=== PATIENT | male | born 1950 | race Caucasian/White ===

== ENCOUNTER 2017-03-24 09:36 | Day surgery (SDC) | payer BC, MEDICARE ==
[~2017-03-24 09:36] MED LIST: ACETAMINOPHEN 1000MG/100 ML PREMIX IV ONE; FAMOTIDINE 20MG TABLET PO ONE; MECLIZINE 25 MG TABLET PO ONE; METOCLOPRAMIDE 10 MG TABLET PO ONE
[2017-03-24] MEDS ORDERED: SUCCINYLCHOLINE 20 MG/ML 10ML IVP ONE (14:00)
[2017-03-24] MEDS ORDERED: GLYCOPYRROLATE 0.2 MG/ML ML IV ONE (14:00)
[2017-03-24] MEDS ORDERED: ROCURONIUM BROMIDE 50MG/5ML VIAL IV ONE (14:00)
[2017-03-24] MEDS ORDERED: SEVOFLURANE 250 ML INH ONE (14:00)
[2017-03-24] MEDS ORDERED: PROPOFOL 10 MG/ML VIAL IV ONE (14:00)
[2017-03-24] MEDS ORDERED: LIDOCAINE 2% MDV (20MG/ML) 20ML VIAL IV ONE (14:00)
[2017-03-24] MEDS ORDERED: NEOSTIGMINE 1 MG/1 ML,10ML VIAL IV ONE (14:00)
[2017-03-24] MEDS ORDERED: HYDROCODONE/APAP 5/325MG TABLET PO ONE (15:33)
[2017-03-24] MEDS ORDERED: BUPIVACAINE 0.25% W/EPI MPF 30ML VIAL IVP ONE (15:33)
--- NOTE | 2017-03-26 11:51 | Operative Note ---
DATE OF SURGERY: 03/24/2017 REFERRING: Denise Luna M.D. PREOPERATIVE DIAGNOSIS: Symptomatic biliary dyskinesia. POSTOPERATIVE DIAGNOSIS: Symptomatic biliary dyskinesia. OPERATION: Laparoscopic cholecystectomy. Surgeon: Zhen Molina D.O. Material Mover: Dr. Sarah Scott, Resident. Indication: The patient is a 58-year-old male who has had ongoing right subcostal postprandial pain. Multiple imaging studies including CT scan and ultrasound were normal. HIDA scan showed an impaired ejection fraction at 13% which reproduced pain. The patient was seen in the office and a long discussion was done. I let him know that some of his symptoms may be biliary in nature however I could not guarantee resolution of his discomfort if cholecystectomy was pursued. He understood this and desired surgical intervention. We also discussed ongoing medical management which he declined. Risks include but not limited to bleeding, infection, ductal injury, possible conversion to open, postoperative bile leak, injury to underlying visceral structures. He understood this fully. The patient was morbidly obese and had a very large abdomen therefore we did elect to go in the supraumbilical region. He also had had a prior open umbilical hernia repair and again discussed avoiding this area. PROCEDURE: After consent was signed and questions answered, he was taken to the Operating Room and placed in the supine position. General anesthesia was administered per Department of Anesthesia. The patient's abdomen was shaved of hair and prepped and draped in the usual sterile fashion. Adequate timeout was performed. He did receive preoperative Ofirmev. At this time the supraumbilical region was anesthetized with a total of 5 mL of 0.25% Sensorcaine with epinephrine. A 2 cm incision was made. This was carried down to the anterior rectus fascia. This was incised. Frankie clamps placed on the fascial edges and brought up into the wound. Stay sutures of 0 Vicryl were placed. The posterior rectus sheath was identified and incised. The peritoneal cavity was entered digitally. A finger sweep was used. There were no adhesions noted. A 10 mm blunt Minerva port was then placed. A 10 mm, 0 degree lens was placed. There were omental adhesions in the midline which we did have to go around these with the camera. The patient was then rotated into reversed Trendelenburg, rotation to the left. Additional 5 mm epigastric and two 5 mm right subcostal ports were placed. The liver was noted to be very thick consistent with fatty infiltration. Omentum was covering the top of the gallbladder and this was taken down with the Wilver Harmonic. The top of the gallbladder was identified. This was lifted in a cephalad direction. The rest of the omentum was swept inferiorly. Our visualization was excellent. Further cephalad and lateral traction was applied to the gallbladder. The distal half of the gallbladder was released from the cystic plate enlarging our retrocystic area. The cystic duct and cystic artery clearly identified. There was no aberrant anatomy. No posterior ductal structures. Each one was circumferentially dissected out in a 360 degree fashion. We had excellent visualization and there were only 2 structures noted. Each one was doubly clipped and cut in a standard fashion. The gallbladder then was taken off the liver bed with the Wilver Harmonic. Part of this essentially peeled off. We placed an EndoCatch bag and this out infraumbilically after the 5 mm lens was placed to the right subcostal port. Right upper quadrant was rechecked and noted to be hemostatic. No bleeding, no bile leak and no bowel injury noted. I did inspect the 10 mm port site around the navel due to the adhesions which we saw and this was free of any injury as well. The patient was leveled out. Pneumoperitoneum was released. All ports removed. The fascia was closed with 0 Vicryl [id number] fashion. Skin in all 4 ports closed with 4-0 Vicryl. He was taken to recovery room in satisfactory condition. FINDINGS AT TIME OF SURGERY: Chronic cholecystitis. CC: DENISE LUNA MD, FACP MTDD
== END 2017-03-24 15:00 | disposition home or self-care (01) ==
LOC: SUR 09:36
PROVIDERS: ATTEND Surgery
DX: K82.8 Other specified diseases of gallbladder (principal); E78.00 Pure hypercholesterolemia, unspecified; I10 Essential (primary) hypertension; E11.9 Type 2 diabetes mellitus without complications; Z79.84 Long term (current) use of oral hypoglycemic drugs
CPT/HCPCS: J0330; J2710

== ENCOUNTER 2017-12-23 12:32 | Day surgery (SDC) | payer BC, MEDICARE ==
[~2017-12-23 12:32] MED LIST changes: -ACETAMINOPHEN 1000MG/100 ML PREMIX IV ONE; +CEFAZOLIN 2 Gram 2 GM/50 ML BAG IVPB ONE; -FAMOTIDINE 20MG TABLET PO ONE; -MECLIZINE 25 MG TABLET PO ONE; -METOCLOPRAMIDE 10 MG TABLET PO ONE
[2017-12-23] MEDS ORDERED: PROPOFOL 10 MG/ML VIAL IV ONE (12:33)
[2017-12-23] MEDS ORDERED: FENTANYL PF 100MCG/2ML VIAL IV ONE (12:33)
[2017-12-23] MEDS ORDERED: MIDAZOLAM HCL 2MG/2ML VIAL IV ONE (12:33)
[2017-12-23] MEDS ORDERED: LIDOCAINE 2% MDV (20MG/ML) 20ML VIAL IV ONE (12:33)
--- NOTE | 2017-12-24 12:31 | Operative Note ---
DATE OF SURGERY: 12/23/2017 PREOPERATIVE DIAGNOSIS: BPH with obstruction. POSTOPERATIVE DIAGNOSIS: BPH with obstruction. OPERATION: Cystoscopy. Anesthesia: Sedation. Surgeon: Valentin Parisi MD PROCEDURE: Preop informed consent was obtained. Antibiotics were given. Sedation was administered. The patient was brought to the [place] operating room, carefully placed in lithotomy position with the genitalia prepped and draped sterilely. Cystoscopy was performed. The anterior urethra appears unremarkable. The prostate appears large and with a large obstructive middle lobe causing the majority of the visual obstruction. The bladder was entered and carefully inspected. Both ureteral orifices had normal appearance and positioning, and the bladder appeared trabeculated as well. The scope was then withdrawn. The procedure was terminated. The patient was awakened and transferred to recovery in stable condition. PLAN: The patient will follow up in [facility] in the near future. We will discuss his options. Typically, a prostate of this configuration would require a transurethral resection. If he is not amenable to this, then we would consider maximal combination BPH medical therapy. We will have a thorough discussion about this at his next followup appointment. CC: DENISE BLACK MD, FACP [facility]
== END 2017-12-23 16:00 | disposition home or self-care (01) ==
LOC: SUR 12:32
PROVIDERS: ATTEND Urology
DX: N40.1 Benign prostatic hyperplasia with lower urinary tract symptoms (principal); E78.00 Pure hypercholesterolemia, unspecified; I10 Essential (primary) hypertension; E11.9 Type 2 diabetes mellitus without complications
CPT/HCPCS: 36416; 82948; 52000; 00910; J0690